=== PATIENT | female | born 1990 | race Caucasian/White ===

== ENCOUNTER 2017-11-01 09:31 | Emergency (ER) | payer OTHER ==
[~2017-11-01] VITALS: Ht 157.5 cm; Wt 56.7 kg
[2017-11-01 09:36] VITALS: Ht 157.5 cm; Wt 56.7 kg
[2017-11-01 10:23] VITALS: BP 116/75
== END 2017-11-01 10:22 | disposition home or self-care (01) ==
LOC: ED 09:31
DX: J06.9 Acute upper respiratory infection, unspecified (principal); R42 Dizziness and giddiness

== ENCOUNTER 2018-03-20 15:09 | Emergency (ER) | payer OTHER ==
[~2018-03-20] VITALS: Ht 157.5 cm; Wt 58.2 kg
[2018-03-20 15:30] VITALS: Ht 157.5 cm; Wt 58.2 kg
[2018-03-20 17:54] LABS: UA SPECIFIC GRAVITY 1.015 (1.005-1.035); urine erythrocyte NEGATIVE (NEGATIVE)
[2018-03-20 17:55] LABS: microscopic required? YES
[2018-03-20 19:19] VITALS: BP 127/88
== END 2018-03-20 19:19 | disposition home or self-care (01) ==
LOC: ED 15:09
PROVIDERS: Emergency Medicine
DX: R10.32 Left lower quadrant pain (principal); R35.0 Frequency of micturition